=== PATIENT | male | born 1995 | race Caucasian/White ===

== ENCOUNTER 2018-01-10 19:58 | Emergency (ER) | payer MEDICAID, SELFPAY ==
[2018-01-10] VITALS (40 sets, daily range): BP systolic 118–143; BP diastolic 65–119; PULSE 80–113; RESP 9–36; TEMP 36.1; O2SAT 99–100
--- NOTE | 2018-01-10 19:57 | W.ED.GENAD ---
Discharge Plan Disposition Patient Disposition: HOME Condition: Good Discharge Details Chief Complaint: Anxiety Clinical Impression: Adjustment disorder with anxiety, Anxiety attack Reason For Visit: GINGER Primary Care Provider: Rosaura Smith ED Provider: Yazan Leonard Frederic Meds and New Rx's Prescriptions: Continue ibuprofen 800 MG tablet 800 mg PO TID Qty: 90 RF: 0 spironolactone 100 MG tablet 200 mg PO DAILY RF: 0 estradiol 2 MG tablet 6 mg PO DAILY RF: 0 Discharge Instructions Instructions: Anxiety (ED) Additional Instructions: Stay with your friend april. Follow-up with your therapist in the afternoon as planned. Mental health will check on you in the morning. Return to emergency department for worsening anxiety, feeling unsafe, other concerns. Referrals: [facility] [Provider Group] Medical Decision Making Patient here with anxiety/panic attack related to suicide of her fianc?. She is very anxious, tachycardic, hyperventilating. Very difficult to get history from. She was given IV Ativan and IV Zofran with good response. On reevaluation she is much more calm and feels better. She denies being suicidal. She would like to speak to mental health. I have spoken with mental health worker who will come in and evaluate the patient for outpatient referral. Patient seen by mental health. Patient is safe for discharge with her friend whom she will stay with april. She has appointment to see a therapist here in [facility] tomorrow afternoon. Mental health will check with her in the morning. Return to ED for any further problems especially feeling unsafe. HPI General Mode of arrival: EMS. Date/Time Provider Initiated Documentation: 01/10/18 20:08. Limitations to Documentation: no limitations. Information obtained by: patient and EMS. HPI Narrative: Patient presents to ED by ambulance with an anxiety attack. Patient just found out today that her fianc? committed suicide. This understandably had her quite upset. She then found a suicide note and was reading it. This sent her into a full-blown panic attack. Friend called EMS. She was transported here. On arrival she continues to be hyperventilating, gagging, complaining of difficulty breathing. She is extremely anxious and upset. Related Data Home Medications Medication Instructions Recorded Confirmed estradiol 6 mg PO DAILY 03/17/16 08/18/17 spironolactone 200 mg PO DAILY 03/17/16 08/18/17 ibuprofen 800 mg PO TID #90 tab-cap 07/12/17 Previous Rx's Medication Instructions Recorded ibuprofen 800 mg PO TID #90 tab-cap 07/12/17 Allergies Allergy/AdvReac Type Severity Reaction Status Date / Time No Known Allergies Allergy Unverified 08/18/17 23:19 General Stated Complaint: Anxiety JASS: 3 Review of Systems Review of Systems Unobtainable due to mental condition (severe anxiety) [facility] Family History Mother Neoplasm Father Diabetes Essential hypertension Sister No problems noted. Brother No problems noted. Grandfather No problems noted. Grandfather No problems noted. Grandmother Diabetes Grandmother No problems noted. Medical History Gender identity disorder (Acute) High cholesterol Surgical History Circumcision Exam Const General: well developed and anxious Nutritional Appearance: well nourished Orientation: alert and oriented x3 HENMT Head: normal to inspection, normocephalic and atraumatic Mouth: moist mucous membranes Neck Neck: normal visual inspection, trachea midline and supple Resp Effort & Inspection: tachypneic and other (anxiety) Auscultation: clear to auscultation bilaterally Cardio Rate: tachycardic Rhythm: regular rhythm Heart Sounds: S1 normal and S2 normal Skin General skin exam: no rashes or lesions noted Neuro General: alert, oriented x3, no focal motor deficits and CN's II-XI intact bilaterally Extrem General: normal to inspection, full ROM and normal capillary refill Psych Appearance: grossly normal Mental Status: mental status grossly normal Mood: anxious mood Affect: anxious affect Course Vital Signs Temperature 97.0 F L 01/10/18 19:55 Pulse 90 01/10/18 19:55 Respiratory Rate 13 01/10/18 19:55 Blood Pressure 143/119 H 01/10/18 19:55 Pulse Oximetry 100 01/10/18 19:55 Temperature 97.0 F L 01/10/18 19:55 Temperature Source Skin 01/10/18 19:55 Pulse 90 01/10/18 19:55 Respiratory Rate 13 01/10/18 19:55 Blood Pressure 143/119 H 01/10/18 19:55 Pulse Oximetry 100 01/10/18 19:55 Oxygen Delivery Method Non-Rebreather 01/10/18 19:55 Oxygen Flow Rate 10 01/10/18 19:55
[2018-01-10] MEDS: LORazepam 2 MG/ML VIAL 1 MG IVP (20:08)
[2018-01-10] MEDS: Ondansetron 4 MG/2 ML VIAL IVP (20:11)
--- NOTE | 2018-01-10 20:33 | ED.GENADUL_ITS ---
Discharge Plan Disposition Patient Disposition: HOME Condition: Good Discharge Details Chief Complaint: Anxiety Clinical Impression: Adjustment disorder with anxiety, Anxiety attack Reason For Visit: GINGER Primary Care Provider: Rosaura Smith ED Provider: Yazan Leonard Truxton Meds and New Rx's Prescriptions: Continue ibuprofen 800 MG tablet 800 mg PO TID Qty: 90 RF: 0 spironolactone 100 MG tablet 200 mg PO DAILY RF: 0 estradiol 2 MG tablet 6 mg PO DAILY RF: 0 Discharge Instructions Instructions: Anxiety (ED) Additional Instructions: Stay with your friend april. Follow-up with your therapist in the afternoon as planned. Mental health will check on you in the morning. Return to emergency department for worsening anxiety, feeling unsafe, other concerns. Referrals: [facility] [Provider Group] Medical Decision Making Patient here with anxiety/panic attack related to suicide of her fianc?. She is very anxious, tachycardic, hyperventilating. Very difficult to get history from. She was given IV Ativan and IV Zofran with good response. On reevaluation she is much more calm and feels better. She denies being suicidal. She would like to speak to mental health. I have spoken with mental health worker who will come in and evaluate the patient for outpatient referral. Patient seen by mental health. Patient is safe for discharge with her friend whom she will stay with april. She has appointment to see a therapist here in [facility] tomorrow afternoon. Mental health will check with her in the morning. Return to ED for any further problems especially feeling unsafe. HPI General Mode of arrival: EMS . Date/Time Provider Initiated Documentation: 01/10/18 20:08 . Limitations to Documentation: no limitations . Information obtained by: patient and EMS . HPI Narrative: Patient presents to ED by ambulance with an anxiety attack. Patient just found out today that her fianc? committed suicide. This understandably had her quite upset. She then found a suicide note and was reading it. This sent her into a full-blown panic attack. Friend called EMS. She was transported here. On arrival she continues to be hyperventilating, gagging, complaining of difficulty breathing. She is extremely anxious and upset. Related Data Home Medications Medication Instructions Recorded Confirmed estradiol 6 mg PO DAILY 03/17/16 08/18/17 spironolactone 200 mg PO DAILY 03/17/16 08/18/17 ibuprofen 800 mg PO TID #90 tab-cap 07/12/17 Previous Rx's Medication Instructions Recorded ibuprofen 800 mg PO TID #90 tab-cap 07/12/17 Allergies Allergy/AdvReac Type Severity Reaction Status Date / Time No Known Allergies Allergy Unverified 08/18/17 23:19 General Stated Complaint: Anxiety JASS: 3 Review of Systems Review of Systems Unobtainable due to mental condition (severe anxiety) [facility] Family History Mother Neoplasm Father Diabetes Essential hypertension Sister No problems noted. Brother No problems noted. Grandfather No problems noted. Grandfather No problems noted. Grandmother Diabetes Grandmother No problems noted. Medical History Gender identity disorder (Acute) High cholesterol Surgical History Circumcision Exam Const General: well developed and anxious Nutritional Appearance: well nourished Orientation: alert and oriented x3 HENMT Head: normal to inspection, normocephalic and atraumatic Mouth: moist mucous membranes Neck Neck: normal visual inspection, trachea midline and supple Resp Effort & Inspection: tachypneic and other (anxiety) Auscultation: clear to auscultation bilaterally Cardio Rate: tachycardic Rhythm: regular rhythm Heart Sounds: S1 normal and S2 normal Skin General skin exam: no rashes or lesions noted Neuro General: alert, oriented x3, no focal motor deficits and CN's II-XI intact bilaterally Extrem General: normal to inspection, full ROM and normal capillary refill Psych Appearance: grossly normal Mental Status: mental status grossly normal Mood: anxious mood Affect: anxious affect Course Vital Signs Temperature 97.0 F L 01/10/18 19:55 Pulse 90 01/10/18 19:55 Respiratory Rate 13 01/10/18 19:55 Blood Pressure 143/119 H 01/10/18 19:55 Pulse Oximetry 100 01/10/18 19:55 Temperature 97.0 F L 01/10/18 19:55 Temperature Source Skin 01/10/18 19:55 Pulse 90 01/10/18 19:55 Respiratory Rate 13 01/10/18 19:55 Blood Pressure 143/119 H 01/10/18 19:55 Pulse Oximetry 100 01/10/18 19:55 Oxygen Delivery Method Non-Rebreather 01/10/18 19:55 Oxygen Flow Rate 10 01/10/18 19:55
--- NOTE | 2018-01-11 00:03 | PDOC.MHCN ---
Mental Health Crisis Note Presenting Issue How did you arrive at the ED and why did you come: Patient comes to the ER via ambulance after learning of her friend's suicide and having a panic attack. Precipitating Factors Patient denies SI/HI. She states her head is spinning and she is struggling to process her friend's by suicide. She feels responsible for the as the two of them were engaged and she broke up the relationship two days ago. While she feels extremely sad and in shock over her friend's , she adamantly denies any thoughts of harming herself. She shares that she has a 14-year-old sister who she is very close to and states she would never harm herself as it would upset her little sister. Disposition BEHAVIOR: Cooperative. EYE CONTACT: Good. MOOD: Sad. AFFECT: Congruent to mood. APPETITE: Diminished. SLEEP(trouble falling/staying asleep: Reports difficulty sleeping since the break-up. Plan Patient has an appointment scheduled with Tiera Snell, therapist, tomorrow at 1:00 p.m. [facility] emergency services will check-in with patient by telephone in the morning prior to her therapy appointment to make sure she is maintaining. Patient is provided contact information for [facility] emergency services and she agrees to call as needed.
--- NOTE | 2018-01-11 00:15 | PDOC.MHCN_ITS ---
Mental Health Crisis Note Presenting Issue How did you arrive at the ED and why did you come: Patient comes to the ER via ambulance after learning of her friend's suicide and having a panic attack. Precipitating Factors Patient denies SI/HI. She states her head is spinning and she is struggling to process her friend's by suicide. She feels responsible for the as the two of them were engaged and she broke up the relationship two days ago. While she feels extremely sad and in shock over her friend's , she adamantly denies any thoughts of harming herself. She shares that she has a 14- year-old sister who she is very close to and states she would never harm herself as it would upset her little sister. Disposition BEHAVIOR: Cooperative. EYE CONTACT: Good. MOOD: Sad. AFFECT: Congruent to mood. APPETITE: Diminished. SLEEP(trouble falling/staying asleep: Reports difficulty sleeping since the break-up. Plan Patient has an appointment scheduled with Tiera Snell, therapist, tomorrow at 1:00 p.m. [facility] emergency services will check-in with patient by telephone in the morning prior to her therapy appointment to make sure she is maintaining. Patient is provided contact information for [facility] emergency services and she agrees to call as needed.
== END 2018-01-10 23:56 | disposition home or self-care (01) ==
PROVIDERS: Emergency Provider Emergency Medicine; PCP Nurse Practitioner Family
DX: F43.22 Adjustment disorder with anxiety (principal); F41.0 Panic disorder [episodic paroxysmal anxiety]; Z63.4 Disappearance and death of family member
CPT/HCPCS: 96374; 96375; 99284; 99283; J2060; J2405

== ENCOUNTER 2018-03-25 13:41 | Emergency (ER) | payer MEDICAID, SELFPAY ==
[2018-03-25 13:51] VITALS: BP 127/88; PULSE 94; RESP 16; TEMP 37; O2SAT 100
--- NOTE | 2018-03-25 13:58 | W.ED.GENAD ---
Discharge Plan Disposition Patient Disposition: HOME Discharge Details Chief Complaint: PsychEval Clinical Impression: Depression Reason For Visit: GINGER Primary Care Provider: Rosaura Smith ED Provider: Benito Linder Home Meds and New Rx's Prescriptions: Continued ibuprofen 800 MG tablet 800 mg PO TID Qty: 90 RF: 0 spironolactone 100 MG tablet 200 mg PO DAILY RF: 0 estradiol 2 MG tablet 6 mg PO DAILY RF: 0 Discharge Instructions Instructions: Depression (ED) Additional Instructions: Please contact your primary care physician to arrange follow-up. Call on Tuesday. Please follow-up with [facility] mental health counselor tomorrow. Return to the ER for any worsening or new concerning symptoms. [facility] Rosaura Smith NP [Primary Care Provider] - Medical Decision Making 14:05 --22-year-old female here with depression, suicidal thoughts here by EMS voluntarily after she made an onset attempt to cut her wrist. Not currently suicidal. I spoke with [facility] crisis screener who will come to evaluate the patient. Will check screening labs. -- Labs nondiagnostic. Pt medically clear. 16:23 --patient was evaluated by the mental health digital content specialist: He feels that the patient is safe for discharge and recommends discharge at this time with an outpatient safety plan to include follow-up tomorrow. I reassessed the patient and she notes that she feels safe, has no intention of harming herself or others, is not suicidal and is comfortable with plan to discharge with outpatient follow-up. Disposition decision was made weighing the risks and benefits of hospitalization versus outpatient treatment, the risk for further decompensation, and the patient's wishes. The patient was stable and requested discharge. Prior to discharge, my usual and customary return precautions were reviewed with the patient- this included follow-up instructions and reason to return to the emergency department if condition worsens, does not improve as expected, or other new concerns arise. HPI General Mode of arrival: EMS. Date/Time Provider Initiated Documentation: 03/25/18 13:42. Limitations to Documentation: no limitations. Information obtained by: patient and EMS. HPI Narrative: 22-year-old female (currently in transition from male to female) with chief complaint of depression. Patient notes that she feels completely overwhelmed recently. Contributing to her current state is recent suicide of her partner in January. She states that she has lost everything in the past 2 months. She also notes significant stress at her work. Today she pulled out a knife in attempt to cut her wrist to commit suicide. She was with a friend who restrained her and prevented her from cutting herself. She is here now voluntarily seeking treatment. She denies current suicidality. She denies homicidality. Patient states that she is trying to stay afloat and just wants to be back to normal Related Data Home Medications Medication Instructions Recorded Confirmed estradiol 6 mg PO DAILY 03/17/16 03/25/18 spironolactone 200 mg PO DAILY 03/17/16 03/25/18 ibuprofen 800 mg PO TID #90 tab-cap 07/12/17 03/25/18 Previous Rx's Medication Instructions Recorded ibuprofen 800 mg PO TID #90 tab-cap 07/12/17 Allergies Allergy/AdvReac Type Severity Reaction Status Date / Time No Known Allergies Allergy Unverified 03/25/18 14:01 General Stated Complaint: PsychEval JASS: 2 Review of Systems Review of Systems All systems reviewed & are unremarkable except as noted in HPI and below Musculoskeletal Comments: left shoulder pain chronic Psychiatric Reports as per HPI [facility] Medical History Gender identity disorder (Acute) High cholesterol Surgical History Circumcision Family History Mother Neoplasm Father Diabetes Essential hypertension Sister No problems noted. Brother No problems noted. Grandfather No problems noted. Grandfather No problems noted. Grandmother Diabetes Grandmother No problems noted. Social History household members: other details: 4 current occupational status: employed current occupation: [employer] / [employer] pets and animals: Yes pets and animals: cat(s) Smoking/Tobacco Use Status: Never alcohol intake: current substance use type: does not use nestor/buddhism: Quaker special nestor needs: No seatbelt use: always Exam Const General: cooperative and no acute distress HENMT Head: normocephalic and atraumatic Mouth: moist mucous membranes Eyes Conjunctivae: normal conjunctivae Sclera: normal sclerae EOM: EOM intact bilaterally Neck Neck: trachea midline and supple Resp Auscultation: clear to auscultation bilaterally, no rales, no rhonchi and no wheezes Cardio Jugular venous pressure: no JVD Rate: regular rate and not tachycardic Rhythm: regular rhythm GI Palpation: soft, not firm, no guarding, no masses, not rigid and nontender Skin General skin exam: no rashes or lesions noted Neuro General: alert, awake, oriented x3 and tone normal Extrem General: no edema Psych Appearance: grossly normal Mental Status: mental status grossly normal Speech and Movement: speech and movement normal Mood: dysthymic mood Affect: blunted Attitude: cooperative Thought Content: normal Insight: insight good Course Vital Signs Temperature 37 C 03/25/18 13:51 Pulse 94 H 03/25/18 13:51 Respiratory Rate 16 03/25/18 13:51 Blood Pressure 127/88 03/25/18 13:51 Pulse Oximetry 100 03/25/18 13:51 Temperature 37 C 03/25/18 13:51 Temperature Source Skin 03/25/18 13:51 Pulse 94 H 03/25/18 13:51 Respiratory Rate 16 03/25/18 13:51 Respiratory Effort Non-Labored 03/25/18 13:51 Blood Pressure 127/88 03/25/18 13:51 Blood Pressure Position Sitting 03/25/18 13:51 Pulse Oximetry 100 03/25/18 13:51 Oxygen Delivery Method Room Air 03/25/18 13:51 Oxygen Flow Rate 0 03/25/18 13:51
--- NOTE | 2018-03-25 14:05 | ED.GENADUL_ITS ---
Discharge Plan Disposition Patient Disposition: HOME Discharge Details Chief Complaint: PsychEval Clinical Impression: Depression Reason For Visit: GINGER Primary Care Provider: Rosaura Smith ED Provider: Benito Linder Home Meds and New Rx's Prescriptions: Continued ibuprofen 800 MG tablet 800 mg PO TID Qty: 90 RF: 0 spironolactone 100 MG tablet 200 mg PO DAILY RF: 0 estradiol 2 MG tablet 6 mg PO DAILY RF: 0 Discharge Instructions Instructions: Depression (ED) Additional Instructions: Please contact your primary care physician to arrange follow-up. Call on Tuesday. Please follow-up with [facility] mental health counselor tomorrow. Return to the ER for any worsening or new concerning symptoms. [facility] Rosaura Smith NP [Primary Care Provider] - Medical Decision Making 14:05 --22-year-old female here with depression, suicidal thoughts here by EMS voluntarily after she made an onset attempt to cut her wrist. Not currently suicidal. I spoke with [facility] crisis screener who will come to evaluate the patient. Will check screening labs. -- Labs nondiagnostic. Pt medically clear. 16:23 --patient was evaluated by the mental health order management specialist: He feels that the patient is safe for discharge and recommends discharge at this time with an outpatient safety plan to include follow-up tomorrow. I reassessed the patient and she notes that she feels safe, has no intention of harming herself or others, is not suicidal and is comfortable with plan to discharge with outpatient follow-up. Disposition decision was made weighing the risks and benefits of hospitalization versus outpatient treatment, the risk for further decompensation, and the patient's wishes. The patient was stable and requested discharge. Prior to discharge, my usual and customary return precautions were reviewed with the patient- this included follow-up instructions and reason to return to the emergency department if condition worsens, does not improve as expected, or other new concerns arise. HPI General Mode of arrival: EMS . Date/Time Provider Initiated Documentation: 03/25/18 13:42 . Limitations to Documentation: no limitations . Information obtained by: patient and EMS . HPI Narrative: 22-year-old female (currently in transition from male to female) with chief complaint of depression. Patient notes that she feels completely overwhelmed recently. Contributing to her current state is recent suicide of her partner in January. She states that she has lost everything in the past 2 months. She also notes significant stress at her work. Today she pulled out a knife in attempt to cut her wrist to commit suicide. She was with a friend who restrained her and prevented her from cutting herself. She is here now voluntarily seeking treatment. She denies current suicidality. She denies homicidality. Patient states that she is trying to stay afloat and just wants to be back to billy l Related Data Home Medications Medication Instructions Recorded Confirmed estradiol 6 mg PO DAILY 03/17/16 03/25/18 spironolactone 200 mg PO DAILY 03/17/16 03/25/18 ibuprofen 800 mg PO TID #90 tab-cap 07/12/17 03/25/18 Previous Rx's Medication Instructions Recorded ibuprofen 800 mg PO TID #90 tab-cap 07/12/17 Allergies Allergy/AdvReac Type Severity Reaction Status Date / Time No Known Allergies Allergy Unverified 03/25/18 14:01 General Stated Complaint: PsychEval JASS: 2 Review of Systems Review of Systems All systems reviewed & are unremarkable except as noted in HPI and below Musculoskeletal Comments: left shoulder pain chronic Psychiatric Reports as per HPI [facility] Medical History Gender identity disorder (Acute) High cholesterol Surgical History Circumcision Family History Mother Neoplasm Father Diabetes Essential hypertension Sister No problems noted. Brother No problems noted. Grandfather No problems noted. Grandfather No problems noted. Grandmother Diabetes Grandmother No problems noted. 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 pets and animals: Yes pets and animals: cat(s) Smoking/Tobacco Use Status: Never alcohol intake: current substance use type: does not use nestor/catholic: Spiritism special nestor needs: No seatbelt use: always Exam Const General: cooperative and no acute distress HENMT Head: normocephalic and atraumatic Mouth: moist mucous membranes Eyes Conjunctivae: normal conjunctivae Sclera: normal sclerae EOM: EOM intact bilaterally Neck Neck: trachea midline and supple Resp Auscultation: clear to auscultation bilaterally, no rales, no rhonchi and no wheezes Cardio Jugular venous pressure: no JVD Rate: regular rate and not tachycardic Rhythm: regular rhythm GI Palpation: soft, not firm, no guarding, no masses, not rigid and nontender Skin General skin exam: no rashes or lesions noted Neuro General: alert, awake, oriented x3 and tone normal Extrem General: no edema Psych Appearance: grossly normal Mental Status: mental status grossly normal Speech and Movement: speech and movement normal Mood: dysthymic mood Affect: blunted Attitude: cooperative Thought Content: normal Insight: insight good Course Vital Signs Temperature 37 C 03/25/18 13:51 Pulse 94 H 03/25/18 13:51 Respiratory Rate 16 03/25/18 13:51 Blood Pressure 127/88 03/25/18 13:51 Pulse Oximetry 100 03/25/18 13:51 Temperature 37 C 03/25/18 13:51 Temperature Source Skin 03/25/18 13:51 Pulse 94 H 03/25/18 13:51 Respiratory Rate 16 03/25/18 13:51 Respiratory Effort Non-Labored 03/25/18 13:51 Blood Pressure 127/88 03/25/18 13:51 Blood Pressure Position Sitting 03/25/18 13:51 Pulse Oximetry 100 03/25/18 13:51 Oxygen Delivery Method Room Air 03/25/18 13:51 Oxygen Flow Rate 0 03/25/18 13:51
[2018-03-25 14:35] LABS: Abs Immature Grans 0.02 k/cumm (0.0-0.09); Absolute Basophil Count 0.02 k/cumm (0.0-0.2); Absolute Eosinophil Count 0.04 k/cumm (0.0-0.7); Absolute Lymphocyte Count 1.68 k/cumm (1.2-3.4); Absolute Neutrophil Count 5.18 k/cumm (1.2-6.7); Basophils % 0.3; Eosinophils % 0.5; HCT 38.8 % (40.0-50.0); HGB 13.6 g/dL (13.5-17.5); Immature Grans % 0.3; Lymphocytes % 22.9; Mean Corp. HGB Concentration 35.1 g/dL (32.0-36.0); Mean Corpuscular Hemoglobin 31.7 pg (27.0-33.0); Mean Corpuscular Volume 90.4 fL (80-95); Mean Platelet Volume 10.3 fL (8.0-11.0); Monocytes % 5.4; Neutrophils % 70.6; Platelet Count 301 x1000/uL (130-400); RBC 4.29 m/cumm (4.50-6.00); RBC Distribution Width 12.2 % (11.8-14.1); White Blood Cell Count 7.34 k/cumm (4.4-10.8)
[2018-03-25 14:45] LABS: ALT 35 U/L (12-78); AST 24 U/L (15-37); Albumin 3.8 g/dL (3.4-5.0); Alkaline Phosphatase 67 U/L (46-116); Anion Gap 9.2 mmol/L (3-11); BUN 13 mg/dL (7-18); Bilirubin, Total 0.2 mg/dL (0.2-1.0); CO2 28.8 mmol/L (21.0-32.0); CREATININE 0.78 mg/dL (0.70-1.30); Calcium 8.8 mg/dL (8.5-10.1); Chloride 101 mmol/L (98-107); Glucose 90 mg/dL (70-100); Potassium 3.8 mmol/L (3.5-5.1); Sodium 139 mmol/L (136-145); Total Protein 7.8 g/dL (6.4-8.2)
[2018-03-25 15:02] LABS: ETHANOL BLOOD < 3.0 mg/dL (<3)
[2018-03-25 15:15] LABS: Salicylate < 2.8 mg/dL (2.8-20.0)
[2018-03-25 15:26] LABS: Acetaminophen < 2 ug/mL (10-30)
[2018-03-25 16:35] VITALS: BP 105/49; PULSE 93; RESP 16; TEMP 37; O2SAT 97
== END 2018-03-25 16:35 | disposition home or self-care (01) ==
PROVIDERS: Emergency Provider Student in an Organized Health Care Education/Training Program; PCP Nurse Practitioner Family
DX: F32.9 Major depressive disorder, single episode, unspecified (principal); R45.851 Suicidal ideations
CPT/HCPCS: 36415; 80053; 99285; 80320; 80329; 85025; 99284

== ENCOUNTER 2018-06-05 16:46 | Outpatient (CLI) | payer MEDICAID, SELFPAY ==
[2018-06-05 20:58] LABS: ALT 30 U/L (12-78); AST 24 U/L (15-37); Albumin 3.8 g/dL (3.4-5.0); Alkaline Phosphatase 71 U/L (46-116); Anion Gap 8.6 mmol/L (3-11); BUN 14 mg/dL (7-18); Bilirubin, Total 0.2 mg/dL (0.2-1.0); CO2 28.4 mmol/L (21.0-32.0); CREATININE 0.81 mg/dL (0.70-1.30); Calcium 8.8 mg/dL (8.5-10.1); Chloride 99 mmol/L (98-107); Cholesterol 210 mg/dL (50-200); Glucose 91 mg/dL (70-100); HDL Cholesterol 57 mg/dL (40-60); LDL CHOLESTEROL 138 mg/dL (<100); Magnesium 1.8 mg/dL (1.8-2.4); Potassium 4.2 mmol/L (3.5-5.1); Sodium 136 mmol/L (136-145); TSH 2.55 uIU/mL (0.358-3.74); Total Protein 7.9 g/dL (6.4-8.2); Triglyceride 52 mg/dL (30-150)
[2018-06-05 21:33] LABS: FREE T4 1.11 ng/dL (0.76-1.46)
[2018-06-09 12:23] LABS: Testosterone, Free 0.08 ng/dL (5.25-20.7); Testosterone, Total 7.7 ng/dL (240-950)
== END 2018-06-05 17:06 ==
PROVIDERS: PCP Nurse Practitioner Family; Visit Provider Nurse Practitioner Family
DX: E78.5 Hyperlipidemia, unspecified (principal); F64.0 Transsexualism; F32.9 Major depressive disorder, single episode, unspecified; Z00.00 Encounter for general adult medical examination without abnormal findings
CPT/HCPCS: 36415; 80053; 80061; 83721; 84402; 84403; 83735; 84439; 84443

== ENCOUNTER 2018-06-11 09:59 | Emergency (ER) | payer MEDICAID, SELFPAY ==
[2018-06-11 10:04] VITALS: BP 116/66; PULSE 102; RESP 12; TEMP 36.2; O2SAT 99
--- NOTE | 2018-06-11 10:14 | W.ED.GENAD ---
Discharge Plan Disposition Patient Disposition: HOME Condition: Stable Discharge Details Chief Complaint: Urinary Clinical Impression: Urethritis Primary Care Provider: Rosaura Smith ED Provider: Kailash Concepcion Home Meds and New Rx's Prescriptions: Continued spironolactone 100 MG tablet 200 mg PO DAILY RF: 0 estradiol 2 MG tablet 6 mg PO DAILY RF: 0 Discharge Instructions Instructions: Safe Sex (ED) Additional Instructions: Continue to use [id number] Tylenol or Motrin as needed for discomfort and stay well-hydrated. Return to emergency department for any new or significant worsening of symptoms and we will call you with any positive results. Follow-up with your primary care provider as needed for reassessment Referrals: Rosaura Smith, HOT BLAST WORKER [Primary Care Provider] - (As needed for reassessment) Medical Decision Making Patient presenting to the emergency department with chief complaint of urethritis with slight bleeding. Patient is a male who identifies as a female and is undergoing hormonal therapy. Patient was engaged in anal sex and hand stimulation yesterday evening which immediately after caused some urethral burning and irritation. Patient states that this is been intermittent but continued this morning. Physical exam is unremarkable for any specific findings. Concern for traumatic urethritis versus UTI versus STI. Patient and partner both state that they are clean and have no history of STI. Urinalysis along with urine GC chlamydia was ordered. Review of urinalysis shows blood and some ketones but otherwise no acute signs of infection are noted. Discussed with patient potential prophylactic treatment for STI pending results which patient deferred treatment at this time and stated preference to wait on results. I feel that more than likely this is traumatic urethritis. Return precautions were discussed. After discussion of diagnosis and plan of care patient has no further needs, questions, or concerns and states clear understanding to return to the emergency department for any worsening symptoms. HPI General Mode of arrival: ambulatory. Date/Time Provider Initiated Documentation: 06/11/18 10:02. Limitations to Documentation: no limitations. Information obtained by: patient and RN notes reviewed. History of Present Illness 22 year old M presents to the emergency department with the chief complaint of Urethral irritation, described as mild, with intensity rated at 1. Quality is described as burning, and is localized to the genitals. Patient started experiencing this hour(s) (12) and it has been intermittent. No relieving factors improve symptom(s), Patient notes no other symptoms.. Patient did receive the following treatments prior to arrival, none Related Data Home Medications Medication Instructions Recorded Confirmed estradiol 6 mg PO DAILY 03/17/16 06/11/18 spironolactone 200 mg PO DAILY 03/17/16 06/11/18 Allergies Allergy/AdvReac Type Severity Reaction Status Date / Time No Known Allergies Allergy Verified 06/11/18 10:07 General Stated Complaint: Urinary JASS: 4 Review of Systems Constitutional Denies body ache(s), Denies chills, Denies fever(s), Denies malaise and Denies weakness Gastrointestinal Denies abdominal pain, Denies nausea and Denies vomiting Genitourinary Reports as per HPI, Reports hematuria, Denies difficulty urinating, Denies genital lesions, Reports genital pain, Denies dysuria, Denies urinary frequency, Denies urinary hesitancy, Denies urinary incontinence and Reports urinary urgency Neurologic Denies confusion and Denies weakness Psychiatric Denies confusion [facility] Medical History Dissociative identity disorder (Chronic) [id number] transgender person (Chronic) Generalized anxiety disorder (Chronic) Depressive disorder (Chronic) Hyperlipidemia (Chronic) History of suicidal ideation (Inactive) Recurrent dislocation, left shoulder (Inactive) Family History Mother Thyroid cancer Father Essential hypertension Type 2 diabetes mellitus Hyperlipidemia Sister No problems noted. Maternal Grandfather Leukemia Maternal Grandmother Type 2 diabetes mellitus Paternal Grandfather No problems noted. Paternal Grandmother No problems noted. Brother No problems noted. 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 special nestor needs: No Seatbelt use: always Exam Const General: cooperative and no acute distress Orientation: alert, awake and oriented x3 Resp Effort & Inspection: normal respiratory effort and able to speak in complete sentences Auscultation: clear to auscultation bilaterally Cardio Rate: regular rate Rhythm: regular rhythm Heart Sounds: S1 normal and S2 normal GI Palpation: nontender Male General Exam: Yes normal external exam and No tenderness Penis: normal penis, not erythematous, no pustules, no swelling, no ulcerations and no vesicles Meatus: meatus normal Scrotum: scrotum normal Testes: normal Back/Spine/Pelvis Back: no CVA tenderness Neuro General: alert, awake and oriented x3 Extrem General: normal capillary refill Course Vital Signs Temperature 36.2 C L 06/11/18 10:04 Pulse 102 H 06/11/18 10:04 Respiratory Rate 12 06/11/18 10:04 Blood Pressure 116/66 06/11/18 10:04 Pulse Oximetry 99 06/11/18 10:04 Temperature 36.2 C L 06/11/18 10:04 Temperature Source Temporal Artery Scan 06/11/18 10:04 Pulse 102 H 06/11/18 10:04 Respiratory Rate 12 06/11/18 10:04 Respiratory Effort Non-Labored 06/11/18 10:06 Blood Pressure 116/66 06/11/18 10:04 Blood Pressure Position Sitting 06/11/18 10:04 Pulse Oximetry 99 06/11/18 10:04 Oxygen Delivery Method Room Air 06/11/18 10:04 Oxygen Flow Rate 0 06/11/18 10:04 Pain Level 0 06/11/18 10:08
--- NOTE | 2018-06-11 10:18 | ED.GENADUL_ITS ---
Discharge Plan Disposition Patient Disposition: HOME Condition: Stable Discharge Details Chief Complaint: Urinary Clinical Impression: Urethritis Primary Care Provider: Rosaura Smith ED Provider: Kailash Concepcion Home Meds and New Rx's Prescriptions: Continued spironolactone 100 MG tablet 200 mg PO DAILY RF: 0 estradiol 2 MG tablet 6 mg PO DAILY RF: 0 Discharge Instructions Instructions: Safe Sex (ED) Additional Instructions: Continue to use [id number] Tylenol or Motrin as needed for discomfort and stay well-hydrated. Return to emergency department for any new or significant worsening of symptoms and we will call you with any positive results. Follow-up with your primary care provider as needed for reassessment Referrals: Rosaura Smith, MECHANICAL SERVICE REPRESENTATIVE [Primary Care Provider] - (As needed for reassessment) Medical Decision Making Patient presenting to the emergency department with chief complaint of urethritis with slight bleeding. Patient is a male who identifies as a female and is undergoing hormonal therapy. Patient was engaged in anal sex and hand stimulation yesterday evening which immediately after caused some urethral burning and irritation. Patient states that this is been intermittent but continued this morning. Physical exam is unremarkable for any specific findings. Concern for traumatic urethritis versus UTI versus STI. Patient and partner both state that they are clean and have no history of STI. Urinalysis along with urine GC chlamydia was ordered. Review of urinalysis shows blood and some ketones but otherwise no acute signs of infection are noted. Discussed with patient potential prophylactic treatment for STI pending results which patient deferred treatment at this time and stated preference to wait on results. I feel that more than likely this is traumatic urethritis. Return precautions were discussed. After discussion of diagnosis and plan of care patient has no further needs, questions, or concerns and states clear understanding to return to the emergency department for any worsening symptoms. HPI General Mode of arrival: ambulatory . Date/Time Provider Initiated Documentation: 06/11/18 10:02 . Limitations to Documentation: no limitations . Information obtained by: patient and RN notes reviewed . History of Present Illness 22 year old M presents to the emergency department with the chief complaint of Urethral irritation, described as mild, with intensity rated at 1. Quality is described as burning, and is localized to the genitals. Patient started experiencing this hour(s) (12) and it has been intermittent. No relieving factors improve symptom(s), Patient notes no other symptoms.. Patient did receive the following treatments prior to arrival, none Related Data Home Medications Medication Instructions Recorded Confirmed estradiol 6 mg PO DAILY 03/17/16 06/11/18 spironolactone 200 mg PO DAILY 03/17/16 06/11/18 Allergies Allergy/AdvReac Type Severity Reaction Status Date / Time No Known Allergies Allergy Verified 06/11/18 10:07 General Stated Complaint: Urinary JASS: 4 Review of Systems Constitutional Denies body ache(s), Denies chills, Denies fever(s), Denies malaise and Denies weakness Gastrointestinal Denies abdominal pain, Denies nausea and Denies vomiting Genitourinary Reports as per HPI, Reports hematuria, Denies difficulty urinating, Denies genital lesions, Reports genital pain, Denies dysuria, Denies urinary frequency, Denies urinary hesitancy, Denies urinary incontinence and Reports urinary urgency Neurologic Denies confusion and Denies weakness Psychiatric Denies confusion [facility] Medical History Dissociative identity disorder (Chronic) Ekhr-xe-[id number] transgender person (Chronic) Generalized anxiety disorder (Chronic) Depressive disorder (Chronic) Hyperlipidemia (Chronic) History of suicidal ideation (Inactive) Recurrent dislocation, left shoulder (Inactive) Family History Mother Thyroid cancer Father Essential hypertension Type 2 diabetes mellitus Hyperlipidemia Sister No problems noted. Maternal Grandfather Leukemia Maternal Grandmother Type 2 diabetes mellitus Paternal Grandfather No problems noted. Paternal Grandmother No problems noted. Brother No problems noted. 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 pets and animals: Yes pets and animals: cat(s) current gender identity: trans [id number] what type of physical activity do you participate in: none Smoking and Tabacco status: Never alcohol intake: current substance use type: does not use nestor/adventist: Christianity special nestor needs: No Seatbelt use: always Exam Const General: cooperative and no acute distress Orientation: alert, awake and oriented x3 Resp Effort & Inspection: normal respiratory effort and able to speak in complete sentences Auscultation: clear to auscultation bilaterally Cardio Rate: regular rate Rhythm: regular rhythm Heart Sounds: S1 normal and S2 normal GI Palpation: nontender Male General Exam: Yes normal external exam and No tenderness Penis: normal penis, not erythematous, no pustules, no swelling, no ulcerations and no vesicles Meatus: meatus normal Scrotum: scrotum normal Testes: normal Back/Spine/Pelvis Back: no CVA tenderness Neuro General: alert, awake and oriented x3 Extrem General: normal capillary refill Course Vital Signs Temperature 36.2 C L 06/11/18 10:04 Pulse 102 H 06/11/18 10:04 Respiratory Rate 12 06/11/18 10:04 Blood Pressure 116/66 06/11/18 10:04 Pulse Oximetry 99 06/11/18 10:04 Temperature 36.2 C L 06/11/18 10:04 Temperature Source Temporal Artery Scan 06/11/18 10:04 Pulse 102 H 06/11/18 10:04 Respiratory Rate 12 06/11/18 10:04 Respiratory Effort Non-Labored 06/11/18 10:06 Blood Pressure 116/66 06/11/18 10:04 Blood Pressure Position Sitting 06/11/18 10:04 Pulse Oximetry 99 06/11/18 10:04 Oxygen Delivery Method Room Air 06/11/18 10:04 Oxygen Flow Rate 0 06/11/18 10:04 Pain Level 0 06/11/18 10:08
[2018-06-11 10:35] LABS: Bilirubin Negative (Negative); Blood Trace-intact (Negative); Clarity Clear; Glucose Negative (Negative); Ketones Trace mg/dL (Negative); Leukocyte Esterase Negative (Negative); Nitrite Negative (Negative); Urobilinogen 0.2 EU/dL (Up TO 0.2); pH 7.5 (5-8)
[2018-06-11 10:57] LABS: Bacteria Negative HPF (Negative); Epithelial Cells Moderate HPF (Negative); WBC 0-2 HPF (0-5)
[2018-06-11 10:58] LABS: C & S Indicated? No; Casts Negative LPF (Negative); Crystals Negative HPF (Negative); Mucus Negative (Negative)
[2018-06-12 15:06] LABS: Chlamydia Result Negative; GC Result Negative
== END 2018-06-11 11:11 | disposition home or self-care (01) ==
PROVIDERS: Emergency Provider Nurse Practitioner Family; PCP Nurse Practitioner Family
DX: N34.2 Other urethritis (principal)
CPT/HCPCS: 87491; 87591; 99282; 81003; 81015

== ENCOUNTER 2018-10-18 19:54 | Emergency (ER) | payer MEDICAID, SELFPAY ==
[2018-10-18] VITALS (22 sets, daily range): BP systolic 118–146; BP diastolic 59–117; PULSE 65–86; RESP 20; TEMP 36.6; O2SAT 96–100
--- NOTE | 2018-10-18 20:24 | W.ED.GENAD ---
Discharge Plan Disposition Patient Disposition: HOME Condition: Good Discharge Details Chief Complaint: Chest Pain Clinical Impression: Acute costochondritis Primary Care Provider: Rosaura Smith ED Provider: Kendell Amin Home Meds and New Rx's Prescriptions: New lidocaine [Lidoderm] 1 PATCH patch 1 patch Topical Q24H Qty: 4 RF: 0 Continued citalopram 10 mg tablet 10 mg PO DAILY Qty: 90 RF: 4 spironolactone 100 MG tablet 200 mg PO DAILY RF: 0 estradiol 2 MG tablet 6 mg PO DAILY RF: 0 Discharge Instructions Instructions: Costochondritis (ED) Additional Instructions: At this time your labs are negative for any signs of heart attack, your chest x-ray is normal. Your symptoms are consistent with costochondritis. This is inflammation between the ribs and the sternum. Treatment requires the Lidoderm patch, as well as Tylenol and Motrin. He can take a maximum dose of 1000 mg of Tylenol every 6 hours and 600 mg of ibuprofen every 6 hours. If you notice any worsening of your symptoms, or any new symptoms such as vomiting, diarrhea, fever, chills, shortness of breath, chest pain, numbness, weakness, or fainting , please return immediately to the emergency department for reevaluation. Please follow up with your primary care provider as soon as possible for reassessment and reevaluation. As always, it was a pleasure participating in your medical care today. Referrals: Rosaura Smith, KENNEL OPERATOR [Primary Care Provider] - Medical Decision Making This is a 22-year-old who is genetically male but currently undergoing gender reassignment, on estradiol with the goals of becoming female. She states that for the last 2 hours she has had central chest pain that is reproducible on exam notable over the lower sternum and intercostal regions. She does have subjective pleuritic chest pain, as well as mild shortness of breath. Lung sounds are clear. Vital signs are normal. Differential is highest for costochondritis, however due to her estrogen use, as well as her pleuritic chest pain PE is certainly on the differential. We will perform laboratory work-up, treat with Toradol and Lidoderm patch, gently hydrate and reassess 10:20 PM Laboratory work-up is returned notably benign, d-dimer is negative, no white count, hemoglobin stable, normal renal function, normal liver function, normal lipase, troponin normal, EKG benign, chest x-ray per virtual radiology shows no evidence of acute process. On reassessment the patient's pain is nearly completely relieved with the Toradol and Lidoderm patch. I suspect patient's symptoms are secondary to and clinically consistent with costochondritis. Will recommend continued NSAIDs, Lidoderm patch, and ice as needed. At this time the patient's symptoms are inconsistent with ACS, PE or dissection. I have extensively reviewed the treatment plan and discharge instructions with the patient and their family. I have addressed all patient concerns at this time. The patient and family was made aware of what symptoms to monitor for that would warrant a return to the emergency department. Discussed the plan with the patient and family, they demonstrate verbal understanding and agreement with our assessment and plan at this time. EKG 20: 04 Rate 84, intervals normal, sinus rhythm, no significant ST elevations or depressions, there is a single normal T wave inversion in V1, no Q waves. COMPARISON: CR CHEST 2 VIEWS PA,LAT 03/18/2016 12:02 AM FINDINGS: Lungs: Unremarkable. No consolidation. Pleural space: Unremarkable. No pleural effusion. No pneumothorax. Heart/Mediastinum: Unremarkable. No cardiomegaly. Bones/joints: Unremarkable. IMPRESSION: No acute findings. Thank you for allowing us to participate in the care of your patient. Dictated and Authenticated by: Khoa Ward DO [facility] General Date/Time Provider Initiated Documentation: 10/18/18 20:09. [facility] Narrative: This is a 22-year-old who is genetically male, currently undergoing gender reassignment into a female. She takes daily estradiol and spironolactone. She presents today for evaluation of chest pain. The patient states that 2 hours ago she developed a gradual onset of pressure-like sensation in her central chest, worsened with palpation, and movement. Not improved by sitting forward. She does have a pleuritic pain component as well. No radiation to her arm neck or shoulders. She denies any chest heaviness, or chest tightness. She does admit to mild shortness of breath. She denies any recent activity, trauma, or aggravating event that brought on the symptoms. Denies PE risk factors such as recent long car rides, immobilization, recent surgery, prior history of DVT or PE, family history of PE or DVT, morbid obesity, and smoking, hemoptysis, history of cancer. Patient denies any cough, pleuritic cough, IV or illicit drug use, or other complaint. No other modifying factors. Of note she does smoke occasional marijuana once weekly, but denies any tobacco use Related Data Home Medications Medication Instructions Recorded Confirmed estradiol 6 mg PO DAILY 03/17/16 10/18/18 spironolactone 200 mg PO DAILY 03/17/16 10/18/18 citalopram 10 mg tablet 10 mg PO DAILY #90 tab 07/15/18 10/18/18 lidocaine [Lidoderm] 1 patch TOPICAL Q24H #4 patch 10/18/18 Previous Rx's Medication Instructions Recorded citalopram 10 mg tablet 10 mg PO DAILY #90 tab 07/15/18 lidocaine [Lidoderm] 1 patch TOPICAL Q24H #4 patch 10/18/18 Allergies Allergy/AdvReac Type Severity Reaction Status Date / Time No Known Allergies Allergy Verified 10/11/18 16:00 General Stated Complaint: Chest Pain JASS: 3 Review of Systems Review of Systems All systems reviewed & are unremarkable except as noted in HPI and below PFSH Social History Smoking/Tobacco Use Status: Never Alcohol Intake: current Alcohol Intake frequency: a few times a week Drug use: Occasionally Substance use type: marijuana Household members: other Details: 4 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 3.ENT: Atraumatic external nose and ears. Moist MM. Neck: Symmetric, trachea midline, No thyromegaly. 4.CVS: +S1/S2, No murmurs or gallops. Peripheral pulses 2+ and equal in all extremities. Brisk capillary refill in all extremities. 5.RESP: Unlabored respiratory effort. Clear to auscultation bilaterally. No wheezes rales or rhonchi. Notable reproducible chest pain in the central chest over the lower sternum and xiphoid process. Notable intercostal pain in this area. 6.GI: Soft, Nontender/Nondistended, No hepatosplenomegaly. No guarding or rebound. 7.MSK: Normocephalic/Atraumatic, Extremities w/o deformity or ttp No cyanosis or clubbing, Normal movement of all extremities, no calf tenderness. No pitting edema in the lower extremities 8.Skin: Warm, Dry. No rashes or lesions. 9.Neuro: map compiler II-XII grossly intact. Sensation grossly intact, no focal neurologic deficits. 10.Psych: (AAO) x3. Appropriate mood and affect Course Vital Signs Temperature 36.6 C 10/18/18 19:59 Pulse 86 10/18/18 19:59 Respiratory Rate 20 10/18/18 19:59 Blood Pressure 131/80 10/18/18 19:59 Pulse Oximetry 97 10/18/18 19:59 Temperature 36.6 C 10/18/18 19:59 Temperature Source Skin 10/18/18 19:59 Pulse 86 10/18/18 19:59 Respiratory Rate 20 10/18/18 19:59 Respiratory Effort Non-Labored 10/18/18 20:02 Blood Pressure 131/80 10/18/18 19:59 Blood Pressure Position Supine 10/18/18 19:59 Pulse Oximetry 97 10/18/18 19:59 Oxygen Delivery Method Room Air 10/18/18 19:59 Oxygen Flow Rate 0 10/18/18 19:59 Pain Level 6 10/18/18 19:59
--- NOTE | 2018-10-18 20:31 | ED.GENADUL_ITS ---
Discharge Plan Disposition Patient Disposition: HOME Condition: Good Discharge Details Chief Complaint: Chest Pain Clinical Impression: Acute costochondritis Primary Care Provider: Rosaura Smith ED Provider: Kendell Amin Home Meds and New Rx's Prescriptions: New lidocaine [Lidoderm] 1 PATCH patch 1 patch Topical Q24H Qty: 4 RF: 0 Continued citalopram 10 mg tablet 10 mg PO DAILY Qty: 90 RF: 4 spironolactone 100 MG tablet 200 mg PO DAILY RF: 0 estradiol 2 MG tablet 6 mg PO DAILY RF: 0 Discharge Instructions Instructions: Costochondritis (ED) Additional Instructions: At this time your labs are negative for any signs of heart attack, your chest x- ray is normal. Your symptoms are consistent with costochondritis. This is inflammation between the ribs and the sternum. Treatment requires the Lidoderm patch, as well as Tylenol and Motrin. He can take a maximum dose of 1000 mg of Tylenol every 6 hours and 600 mg of ibuprofen every 6 hours. If you notice any worsening of your symptoms, or any new symptoms such as vomiting, diarrhea, fever, chills, shortness of breath, chest pain, numbness, weakness, or fainting , please return immediately to the emergency department for reevaluation. Please follow up with your primary care provider as soon as possible for reassessment and reevaluation. As always, it was a pleasure participating in your medical care today. Referrals: Rosaura Smith, [employer] [Primary Care Provider] - Medical Decision Making This is a 22-year-old who is genetically male but currently undergoing gender reassignment, on estradiol with the goals of becoming female. She states that for the last 2 hours she has had central chest pain that is reproducible on exam notable over the lower sternum and intercostal regions. She does have noe bjective pleuritic chest pain, as well as mild shortness of breath. Lung sounds are clear. Vital signs are normal. Differential is highest for costochondritis, however due to her estrogen use, as well as her pleuritic chest pain PE is certainly on the differential. We will perform laboratory work-up, treat with Toradol and Lidoderm patch, gently hydrate and reassess 10:20 PM Laboratory work-up is returned notably benign, d-dimer is negative, no white count, hemoglobin stable, normal renal function, normal liver function, normal lipase, troponin normal, EKG benign, chest x-ray per virtual radiology shows no evidence of acute process. On reassessment the patient's pain is nearly completely relieved with the Toradol and Lidoderm patch. I suspect patient's symptoms are secondary to and clinically consistent with costochondritis. Will recommend continued NSAIDs, Lidoderm patch, and ice as needed. At this time the patient's symptoms are inconsistent with ACS, PE or dissection. I have extensively reviewed the treatment plan and discharge instructions with the patient and their family. I have addressed all patient concerns at this time. The patient and family was made aware of what symptoms to monitor for that would warrant a return to the emergency department. Discussed the plan with the patient and family, they demonstrate verbal understanding and agreement with our assessment and plan at this time. EKG 20: 04 Rate 84, intervals normal, sinus rhythm, no significant ST elevations or depressions, there is a single normal T wave inversion in V1, no Q waves. COMPARISON: CR CHEST 2 VIEWS PA,LAT 03/18/2016 12:02 AM FINDINGS: Lungs: Unremarkable. No consolidation. Pleural space: Unremarkable. No pleural effusion. No pneumothorax. Heart/Mediastinum: Unremarkable. No cardiomegaly. Bones/joints: Unremarkable. IMPRESSION: No acute findings. Thank you for allowing us to participate in the care of your patient. Dictated and Authenticated by: Khoa Ward DO [facility] General Date/Time Provider Initiated Documentation: 10/18/18 20:09 . [facility] Narrative: Homer palomo is a 22-year-old who is genetically male, currently undergoing gender reassignment into a female. She takes daily estradiol and spironolactone. She presents today for evaluation of chest pain. The patient states that 2 hours ago she developed a gradual onset of pressure-like sensation in her central chest, worsened with palpation, and movement. Not improved by sitting forward. She does have a pleuritic pain component as well. No radiation to her arm neck or shoulders. She denies any chest heaviness, or chest tightness. She does admit to mild shortness of breath. She denies any recent activity, trauma, or aggravating event that brought on the symptoms. Denies PE risk factors such as recent long car rides, immobilization, recent surgery, prior history of DVT or PE, family history of PE or DVT, morbid obesity, and smoking, hemoptysis, history of cancer. Patient denies any cough, pleuritic cough, IV or illicit drug use, or other complaint. No other modifying factors. Of note she does smoke occasional marijuana once weekly, but denies any tobacco use Related Data Home Medications Medication Instructions Recorded Confirmed estradiol 6 mg PO DAILY 03/17/16 10/18/18 spironolactone 200 mg PO DAILY 03/17/16 10/18/18 citalopram 10 mg tablet 10 mg PO DAILY #90 tab 07/15/18 10/18/18 lidocaine [Lidoderm] 1 patch TOPICAL Q24H #4 patch 10/18/18 Previous Rx's Medication Instructions Recorded citalopram 10 mg tablet 10 mg PO DAILY #90 tab 07/15/18 lidocaine [Lidoderm] 1 patch TOPICAL Q24H #4 patch 10/18/18 Allergies Allergy/AdvReac Type Severity Reaction Status Date / Time No Known Allergies Allergy Verified 10/11/18 16:00 General Stated Complaint: Chest Pain JASS: 3 Review of Systems Review of Systems All systems reviewed & are unremarkable except as noted in HPI and below PFSH Social History Smoking/Tobacco Use Status: Never Alcohol Intake: current Alcohol Intake frequency: a few times a week Drug use: Occasionally Substance use type: marijuana Household members: other Details: 4 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 3.ENT: Atraumatic external nose and ears. Moist MM. Neck: Symmetric, trachea midline, No thyromegaly. 4.CVS: +S1/S2, No murmurs or gallops. Peripheral pulses 2+ and equal in all extremities. Brisk capillary refill in all extremities. 5.RESP: Unlabored respiratory effort. Clear to auscultation bilaterally. No wheezes rales or rhonchi. Notable reproducible chest pain in the central chest over the lower sternum and xiphoid process. Notable intercostal pain in this area. 6.GI: Soft, Nontender/Nondistended, No hepatosplenomegaly. No guarding or rebound. 7.MSK: Normocephalic/Atraumatic, Extremities w/o deformity or ttp No cyanosis or clubbing, Normal movement of all extremities, no calf tenderness. No pitting edema in the lower extremities 8.Skin: Warm, Dry. No rashes or lesions. 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 Sensation grossly intact, no focal neurologic deficits. 10.Psych: (AAO) x3. Appropriate mood and affect Course Vital Signs Temperature 36.6 C 10/18/18 19:59 Pulse 86 10/18/18 19:59 Respiratory Rate 20 10/18/18 19:59 Blood Pressure 131/80 10/18/18 19:59 Pulse Oximetry 97 10/18/18 19:59 Temperature 36.6 C 10/18/18 19:59 Temperature Source Skin 10/18/18 19:59 Pulse 86 10/18/18 19:59 Respiratory Rate 20 10/18/18 19:59 Respiratory Effort Non-Labored 10/18/18 20:02 Blood Pressure 131/80 10/18/18 19:59 Blood Pressure Position Supine 10/18/18 19:59 Pulse Oximetry 97 10/18/18 19:59 Oxygen Delivery Method Room Air 10/18/18 19:59 Oxygen Flow Rate 0 10/18/18 19:59 Pain Level 6 10/18/18 19:59
[2018-10-18 20:32] LABS: Abs Immature Grans 0.03 k/cumm (0.0-0.09); Absolute Basophil Count 0.02 k/cumm (0.0-0.2); Absolute Lymphocyte Count 2.24 k/cumm (1.2-3.4); Absolute Monocyte Count 0.61 k/cumm (0.11-0.7); Absolute Neutrophil Count 4.92 k/cumm (1.2-6.7); Basophils % 0.3; Eosinophils % 1.3; HGB 13.2 g/dL (13.5-17.5); Immature Grans % 0.4; Lymphocytes % 28.3; Mean Corp. HGB Concentration 34.7 g/dL (32.0-36.0); Mean Corpuscular Hemoglobin 31.7 pg (27.0-33.0); Mean Corpuscular Volume 91.3 fL (80-95); Mean Platelet Volume 10.2 fL (8.0-11.0); Monocytes % 7.7; Platelet Count 330 x1000/uL (130-400); RBC 4.16 m/cumm (4.50-6.00); RBC Distribution Width 12.1 % (11.8-14.1); White Blood Cell Count 7.92 k/cumm (4.4-10.8)
[2018-10-18 20:43] LABS: PTT Activated 24.3 sec (21.0-31.4); Prothrombin Time 9.9 sec (9.3-11.0)
[2018-10-18] MEDS: Lidocaine 5% Patch 1 PATCH TP (20:47)
[2018-10-18] MEDS: Normal Saline 1,000 ML 1000 ML IV (20:47)
[2018-10-18] MEDS: Ketorolac 30 MG/ML VIAL IVP (20:47)
[2018-10-18 20:51] LABS: ALT 15 U/L (12-78); Albumin 3.7 g/dL (3.4-5.0); Alkaline Phosphatase 84 U/L (46-116); Anion Gap 6.5 mmol/L (3-11); BUN 14 mg/dL (7-18); Bilirubin, Total 0.2 mg/dL (0.2-1.0); CO2 29.5 mmol/L (21.0-32.0); CREATININE 0.74 mg/dL (0.70-1.30); Calcium 9.2 mg/dL (8.5-10.1); Chloride 101 mmol/L (98-107); Glucose 95 mg/dL (70-100); Lipase 148 U/L (73-393); NT-proBNP 36 pg/mL; Potassium 4.1 mmol/L (3.5-5.1); Sodium 137 mmol/L (136-145); Total Protein 7.8 g/dL (6.4-8.2); Troponin I < 0.05 ng/mL (0.00-0.06)
[2018-10-18 21:00] LABS: AST 20 U/L (15-37)
[2018-10-18 21:28] LABS: D-Dimer 174 ng/mlFEU (<500)
--- NOTE | 2018-10-18 21:59 | DI.RAD_ITS ---
SYMPTOM/DIAGNOSIS: CENTRAL CHEST PAIN PA AND LATERAL CHEST: Comparison is made with 03/18/16. The heart is normal in size. The lungs are clear. The mediastinal structures and pleura appear intact. CONCLUSION: Normal chest.
--- NOTE | 2018-10-18 22:15 | DI.VRAD_ITS ---
EXAM: XR Chest, 2 Views EXAM DATE/TIME: 10/18/2018 9:47 PM CLINICAL HISTORY: 22 years old, male; Chest pain; Radiating; Additional info: Pain x2 hours radiating down towards abdomen. No known trauma TECHNIQUE: Imaging protocol: XR of the chest, 2 views. COMPARISON: CR CHEST 2 VIEWS PA,LAT 03/18/2016 12:02 AM FINDINGS: Lungs: Unremarkable. No consolidation. Pleural space: Unremarkable. No pleural effusion. No pneumothorax. Heart/Mediastinum: Unremarkable. No cardiomegaly. Bones/joints: Unremarkable. IMPRESSION: No acute findings. Dictated and Authenticated by: Khoa Ward MD. Ordering:HANK Rdz MD
== END 2018-10-18 22:29 | disposition home or self-care (01) ==
PROVIDERS: Emergency Provider Student in an Organized Health Care Education/Training Program; PCP Nurse Practitioner Family
DX: M94.0 Chondrocostal junction syndrome [Tietze] (principal); R06.02 Shortness of breath; F64.0 Transsexualism; Z79.890 Hormone replacement therapy
CPT/HCPCS: 36415; 80053; 83690; 93005; 96361; 96374; 99285; 71046; 83880; 84484; 85025; 85379; 85610; 85730; 93010; J1885